=== PATIENT | female | born 1990 | race Caucasian/White ===

== ENCOUNTER 2020-08-05 10:21 | Observation (INO) | payer MEDICAID, OTHER ==
[2020-08-05] VITALS (7 sets, daily range): BP systolic 104–123; BP diastolic 42–69
[~2020-08-05] VITALS: Ht 167.6 cm; Wt 77.2 kg
--- NOTE | 2020-08-05 10:30 | NUR ---
PT BIB [facility]. MEDICATION ON 07/20, STARTED BLEEDING ON THE 07/21. HAS BEEN BLEEDING SINCE 07/21. DENIES ANY PAIN. PT CHANGED INTO GOWN, MONITORS IN PLACE. AT
--- NOTE | 2020-08-05 10:58 | NUR ---
PELVIC BED IN ROOM. LAB AT BS
[2020-08-05 11:08] LABS: BASOPHILS % (AUTO) 1 % (0-1); EOSINOPHILS % (AUTO) 1 % (1-7); LYMPHOCYTES % (AUTO) 20 % (22-44); MEAN CORPUSCULAR HEMOGLOBIN 31.9 pg (27.0-34.8); MEAN CORPUSCULAR HGB CONC 33.6 g/dL (32.4-35.8); MEAN PLATELET VOLUME 7.8 fL (7.4-10.4); MONOCYTES % (AUTO) 5 % (2-9); NEUTROPHILS % (AUTO) 74 % (42-75); PLATELET COUNT 361 x10^3/uL (130-400); RED BLOOD COUNT 2.41 x10^6/uL (3.82-5.3); RED CELL DISTRIBUTION WIDTH 13.7 % (9.6-15.2)
--- NOTE | 2020-08-05 11:18 | NUR ---
PT TO US
[2020-08-05 11:19] LABS: ALBUMIN 3.9 g/dL (3.4-5.0); ANION GAP 4 mmol/L (5-15); CALCIUM 9.1 mg/dL (8.5-10.1); CHLORIDE 109 mmol/L (98-107); CREATININE 0.64 mg/dL (0.55-1.02)
[2020-08-05 11:33] LABS: MD NO
--- NOTE | 2020-08-05 13:14 | NUR ---
CONSENT SIGNED, RHOGAM ADMINSTERED, PT TOLERATED WELL. STATES SHE HAS HAD IT BEFORE. EDUCATION PACKET GIVEN
--- NOTE | 2020-08-05 14:09 | NUR ---
PT LAYING ON GURNEY, WATCHING TV. NAD/VSS. COMFORT MEASURES PROVIDED.
--- NOTE | 2020-08-05 14:51 | NUR ---
PT LAYING ON GURNEY, WATCHING TV AND ON HER PHONE. NAD/VSS. NO NEEDS AT THIS TIME
[2020-08-05] MEDS ORDERED: CHLORHEXIDINE 15 ML UDC ONE (15:59)
--- NOTE | 2020-08-05 16:14 | NUR ---
PT TO OR
[2020-08-05] MEDS ORDERED: CHLORHEXIDINE 15 ML UDC PO ONE (16:30)
[2020-08-05] MEDS ORDERED: NO HOME MEDS PER PT (16:38)
[2020-08-05] MEDS ORDERED: SILVER NITRATE STICK TP ONE (17:27)
[2020-08-05] MEDS ORDERED: METHYLERGONOVINE 0.2 MG/ML IM ONE (17:27)
[2020-08-05] MEDS ORDERED: OXYTOCIN 10 UNITS/ML, 1ML ONE (17:27)
[2020-08-05] MEDS ORDERED: LIDOCAINE-MPF 2% ,5ML ONE (17:32)
[2020-08-05] MEDS ORDERED: PROPOFOL 10 MG/ML, 20ML ONE (17:32)
[2020-08-05] MEDS ORDERED: FENTANYL PF 100 MCG/2ML ONE (17:32)
[2020-08-05] MEDS ORDERED: MIDAZOLAM 1 MG/ML, 2ML ONE (17:32)
[2020-08-05] MEDS ORDERED: DEXAMETHASONE 4 MG/ML, 1ML ONE (17:37)
[2020-08-05] MEDS ORDERED: PHENYLEPHRINE 10 MG/ML ONE (17:42)
[2020-08-05] MEDS ORDERED: CEFAZOLIN 1,000 MG ONE (17:42)
[2020-08-05] MEDS ORDERED: EPHEDRINE 50 MG/ML, 1ML IVPush PRN (18:00)
[2020-08-05] MEDS ORDERED: DIAZEPAM 5 MG/ML, 2ML IVPush PRN (18:00)
[2020-08-05] MEDS ORDERED: MEPERIDINE/PF 25MG/0.5ML IVPush PRN (18:00)
[2020-08-05] MEDS ORDERED: PROMETHAZINE 25 MG/ML, 1ML IVPush PRN (18:00)
[2020-08-05] MEDS ORDERED: OXYcodone 5 MG/5 ML ORAL.SOL UDC PO PRN (18:00)
[2020-08-05] MEDS ORDERED: LABETALOL 5MG/ML, 20ML IV PRN (18:00)
[2020-08-05] MEDS ORDERED: FENTANYL PF 100 MCG/2ML IV PRN (18:00)
[2020-08-05] MEDS ORDERED: PROMETHAZINE 12.5 MG SUPP PR PRN (18:00)
[2020-08-05] MEDS ORDERED: hydrALAzine 20 MG/ML, 1ML IV PRN (18:00)
[2020-08-05] MEDS ORDERED: HYDROmorphone 1 MG/ML, 1ML INJ IVPush PRN (18:00)
[2020-08-05] MEDS ORDERED: ALBUTEROL SULFATE 2.5 MG/3 ML NPPB PRN (18:00)
[2020-08-05] MEDS ORDERED: MIDAZOLAM 1 MG/ML, 2ML IV PRN (18:00)
[2020-08-05] MEDS ORDERED: ACETAMINOPHEN 325 MG TABLET PO PRN (18:00)
[2020-08-05] MEDS ORDERED: DIPHENHYDRAMINE 50 MG/ML, 1ML IVPush PRN ×2 (18:00)
[2020-08-05] MEDS ORDERED: ONDANSETRON 2MG/ML, 2ML IVPush PRN ×2 (18:00→20:00)
[2020-08-05] MEDS ORDERED: HYDR-1067 PO (18:29)
[2020-08-05] MEDS ORDERED: IBUP-1222 PO (18:29)
[2020-08-05] MEDS ORDERED: ACETAMINOPHEN 650 MG/20.3 ML UDC ONE (18:45)
[2020-08-05] MEDS ORDERED: HYDROcodone/APAP 5/325 TABLET PO PRN (20:00)
[2020-08-06 00:06] VITALS: BP 115/48
[2020-08-06 01:01] VITALS: BP 100/48
[2020-08-06 02:15] VITALS: BP 96/48
[2020-08-06 02:34] VITALS: BP 96/48
[2020-08-06] MEDS ORDERED: KETOROLAC 30 MG/1 ML IVPush PRN ×2 (04:30)
[2020-08-06] MEDS ORDERED: IBUPROFEN 600 MG TABLET PO PRN ×2 (04:30)
[2020-08-06 06:51] VITALS: BP 105/67
== END 2020-08-06 08:55 | disposition home or self-care (01) ==
LOC: ED 14:00 → EDIP 14:12 → 4NE 20:19 → DCLOUNGE 08-06 08:47
PROVIDERS: ADMIT Student in an Organized Health Care Education/Training Program; ATTEND Student in an Organized Health Care Education/Training Program
DX: O03.4 Incomplete spontaneous abortion without complication (principal); Z20.822 Contact with and (suspected) exposure to COVID-19; D62 Acute posthemorrhagic anemia; H93.19 Tinnitus, unspecified ear; N89.8 Other specified noninflammatory disorders of vagina; F17.210 Nicotine dependence, cigarettes, uncomplicated; Z88.0 Allergy status to penicillin; Z67.91 Unspecified blood type, Rh negative
CPT/HCPCS: 36415; 36430; 59812; 76830; 76856; 80048; 82040; 84702; 85014; 85018; 85025; 86850; 86900; 86923; 87635; 88305; 96374; 99285; G0378; J0690; J1100; J1885; J2250; J2370; J2704; J2790; J3010; J3490; P9016; J2210; J2590